=== PATIENT | male | born 1965 | race Caucasian/White ===

== ENCOUNTER 2022-07-19 10:50 | Outpatient (CLI) | payer OTHER, SELFPAY ==
[2022-07-19 11:19] LABS: Hematocrit 38.1 % (37.0-53.0); Hemoglobin* 12.4 gm/dL (13.5-17.5); Mean Corpuscular HGB Conc 33 gm/dL (32-36); Mean Corpuscular Hemoglobin 30 pg (26-34); Mean Corpuscular Volume 91 fL (80-100); Platelet Count* 255 K/uL (140-440); Red Blood Count 4.21 m/uL (4.30-5.90)
[2022-07-19 11:25] LABS: Hemoglobin A1C* 6.2 % (0-5.6)
[2022-07-19 11:39] LABS: Slide Review Reflex No
[2022-07-19 14:32] LABS: Chloride* 103 mmol/L (96-114); Potassium* 4.1 mmol/L (3.6-5.1); Sodium* 139 mmol/L (135-149)
[2022-07-19 14:34] LABS: Carbon Dioxide* 28 mmol/L (20-32); Cholesterol* 101 mg/dL (90-199); Creatinine* 0.9 mg/dL (0.5-1.5); Estimated Glomerular Filt Rate 100 ml/min
[2022-07-19 14:35] LABS: Alanine Aminotransferase* 31 U/L (4-50); Alkaline Phosphatase* 107 U/L (40-150); Aspartate Amino Transferase* 27 U/L (12-35); Bilirubin Total* 0.5 mg/dL (0.1-1.5); Blood Urea Nitrogen* 22 mg/dL (7-30); Calcium* 9.8 mg/dL (8.4-10.6); Glucose* 88 mg/dL (60-115); Total Protein* 6.2 g/dL (6.0-8.3); Triglycerides* 121 mg/dL (40-149)
[2022-07-19 14:36] LABS: HDL Cholesterol* 31 mg/dL (>=40); LDL Cholesterol Calculated 46 mg/dL (<100)
[2022-07-19 14:47] LABS: Creatinine Urine 169.6 mg/dL
[2022-07-19 14:52] LABS: Microalbumin Creatinine Ratio 20 mg/g (0-30); Microalbumin Urine 4 mg/dL
[2022-07-19 15:24] LABS: Vitamin B12* 460 pg/mL (243-894)
[2022-07-20 23:11] LABS: Testosterone, Adult Male 416 ng/dL (300-890)
== END 2022-07-19 10:51 | disposition home or self-care (01) ==
LOC: FRMREF 10:51
PROVIDERS: PCP Physician Assistant Medical; Visit Provider Physician Assistant Medical
DX: E11.3293 Type 2 diabetes mellitus with mild nonproliferative diabetic retinopathy without macular edema, bilateral (principal); E11.9 Type 2 diabetes mellitus without complications; E78.5 Hyperlipidemia, unspecified; I10 Essential (primary) hypertension; E11.69 Type 2 diabetes mellitus with other specified complication; N52.1 Erectile dysfunction due to diseases classified elsewhere
CPT/HCPCS: 80053; 80061; 82043; 82570; 82607; 83036; 84403; 85027

== ENCOUNTER 2022-09-20 08:32 | Outpatient (CLI) | payer OTHER, SELFPAY ==
--- NOTE | 2022-09-20 09:30 | W.ANESCHARGE ---
Anesthesia Charges Start Date/Time Anesthesia Start Date: 09/20/22 Anesthesia Start Time: 09:04 Stop Date/Time Anesthesia Stop Date: 09/20/22 Anesthesia Stop Time: 09:26 Summary Emergency: No
--- NOTE | 2022-09-20 10:20 | W.ANESCHARGE ---
Anesthesia Charges Start Date/Time Anesthesia Start Date: 09/20/22 Anesthesia Start Time: 09:04 Stop Date/Time Anesthesia Stop Date: 09/20/22 Anesthesia Stop Time: 09:26 Summary Emergency: No
== END 2022-09-20 08:33 | disposition home or self-care (01) ==
LOC: OP CLINIC 08:33
PROVIDERS: PCP Physician Assistant Medical; Visit Provider Internal Medicine
DX: Z12.11 Encounter for screening for malignant neoplasm of colon (principal); Z80.0 Family history of malignant neoplasm of digestive organs
CPT/HCPCS: 00812; 45378; J2704

== ENCOUNTER 2023-11-18 09:17 | Outpatient (CLI) | payer OTHER, SELFPAY | END 2023-11-18 09:18 | disposition home or self-care (01) | LOC: NFLDREF 11-19 14:14 | PROVIDERS: PCP Physician Assistant Medical; Referring Provider Physician Assistant Medical; Visit Provider Physician Assistant Medical | DX: E11.65 Type 2 diabetes mellitus with hyperglycemia (principal); E78.2 Mixed hyperlipidemia; I10 Essential (primary) hypertension; E11.69 Type 2 diabetes mellitus with other specified complication; N52.1 Erectile dysfunction due to diseases classified elsewhere; E11.40 Type 2 diabetes mellitus with diabetic neuropathy, unspecified; E11.49 Type 2 diabetes mellitus with other diabetic neurological complication; E11.3293 Type 2 diabetes mellitus with mild nonproliferative diabetic retinopathy without macular edema, bilateral | CPT/HCPCS: 80053; 80061; 82043; 82570; G0103 ==

== ENCOUNTER 2025-02-02 15:40 | Outpatient (CLI) | payer OTHER, SELFPAY | END 2025-02-02 15:41 | disposition home or self-care (01) | LOC: NFLDREF 02-06 13:10 | PROVIDERS: PCP Physician Assistant Medical; Referring Provider Physician Assistant Medical; Visit Provider Physician Assistant Medical | DX: E11.40 Type 2 diabetes mellitus with diabetic neuropathy, unspecified (principal); E11.49 Type 2 diabetes mellitus with other diabetic neurological complication; E11.65 Type 2 diabetes mellitus with hyperglycemia; I10 Essential (primary) hypertension; E78.2 Mixed hyperlipidemia; Z79.85 Long-term (current) use of injectable non-insulin antidiabetic drugs; Z12.5 Encounter for screening for malignant neoplasm of prostate | CPT/HCPCS: 80053; 80061; 82043; 82570; 84443; G0103 ==

== ENCOUNTER 2025-07-29 07:24 | Emergency (ER) | payer OTHER, SELFPAY ==
[2025-07-29] VITALS (10 sets, daily range): BP systolic 161–184; BP diastolic 91–99; PULSE 68–81; RESP 20; TEMP 36.7; O2SAT 94–98; BMI 31.5
--- OUTSIDE RECORDS SUMMARY | 2025-07-29 07:27 | XMS_ITS | Clinical Summary ---
Author Organization [facility] Address [address] [place] [id number] Care Team Providers Care Clutch Inspector Name Role Phone Param Melendez MD Primary Care Provider [phone] Allergies No known active allergies Medications oxyCODONE (ROXICODONE) 5 mg immediate release tabletIndications:U reteral stone Take 1-2 Tablets (5-10 mg) by mouth every 6 hours if needed for Pain. 12 Tablet 5 Active ondansetron (ZOFRAN ODT) 4 mg disintegrating tabletIndications:U reteral stone Place 1 Tablet (4 mg) on the tongue every 6 hours if needed for Nausea/Vomit ing. 10 Tablet 5 Active Encounters Date Type Department Care Team Description 07/28/2025 7:41 AM CDT - 07/28/2025 9:23 AM CDT Emergency [facility] [address] [place] [address] Param Johns MD Ureteral stone (Primary Dx); Lung nodule Discharge Disposition: Home Self Care 07/28/2025 Travel from Last 3 Months Social History Tobacco Use Types Packs/Day Years Used Date Smoking Tobacco: Never Assessed Interpersonal Safety Answer Date Record ed Are you being hit, kicked, p ushed or yelled at (see row info)? No 07/28/2025 Interpersonal Safety Abuse 12 - 18 Not on file 07/28/2025 Interpersonal Safety Ambulatory Vulnerability No t on file 07/28/2025 Sex and Gender Information Value Date Recorded Sex Assigned at Not on file Legal Sex Male 10:18 AM CDT Gender Identity Not on file Sexual Orientation Not on file Last Filed Vital Signs Vital Sign Reading Time Taken Comments Blood Pressure 149/89 07/28/2025 9:00 AM CDT Pulse 65 07/28/2025 9:00 AM CDT Temperature 36.3 C (97.4 F) 07/28/2025 7:47 AM CDT Respiratory Rate 16 07/28/2025 9:00 AM CDT Oxygen Saturation 93% 07/28/2025 9:00 AM CDT Inhaled Oxygen Concentration - - Weight 105.2 kg (232 lb) 07/28/2025 7:47 AM CDT Height 182.9 cm (6') 07/28/2025 7:47 AM CDT Body Mass Index 31.46 07/28/2025 7:47 AM CDT Plan of Treatment Health Maintenance Due Date Last Done Comments Tetanus booster 1976 Depression screening for age 12+ 1977 HIV for age 15-65 1980 BMI (ht and wt on same day) for age 18+ 1983 Hepatitis C screening for age 18-79 1983 Hepatitis B series for 19+ ( 1 of 3 - 19+ 3-dose series) 1984 Colonoscopy through age 75 2010 Lipids for age 45-75 2010 Pneumococcal series for age 50+ (1 of 1 - PCV) 016 Zoster (shingles) series for age 50+ (1 of 2) 10/24/19 16 COVID-19 vaccine series ( - season) 2021 Influenza Vaccine (#1) 2025 RSV vaccine for adults or pr egnancy (1 - 1-dose 75+ series) 2040 Procedures Procedure Name Priority Date/Time Associated Diagnosis Comments CT ABDOMEN PELVIS STONE PROTOCOL WO STAT 07/28/2025 8:41 AM CDT URINALYSIS MICROSCOPIC STAT 07/28/2025 7:48 AM CDT UA W/ SEDIMENT EXAM REFLEXED PER CRITERIA STAT 07/28/2025 7:48 AM CDT from Last 3 Months Results * CT ABDOMEN PELVIS STONE PROTOCOL WO (07/28/2025 8:41 AM CDT) Anatomical Region Laterality Modality Abdomen, Pelvis, AORTA, LIVER, SPLEEN Computed Tomography 07/28/2025 8:57 AM CDT Impressions 07/28/2025 8:57 AM CDT 1. Nephrolithiasis with mild left hydronephrosis and distal obstructing left ureteral stone measuring 3 x 3 millimeters. 2. Other incidental findings as noted above. Please note that all CT scans at this facility use dose modulation, iterative reconstruction, and/or weight-based dosing when appropriate to reduce radiation dose to as low as reasonably achievable. Dictated by Celso Fong MD @ 07/28/2025 8:57:54 AM (Electronically Signed) Narrative 07/28/2025 8:57 AM CDT For Patients: As a result of the Cures Act, medical imaging exams and procedure reports are released immediately into your electronic medical record. You may view this report before your referring provider. If you have questions, please contact your health care provider. INDICATION: Flank pain TECHNIQUE: Axial images were obtained from the diaphragm to the pubic symphysis. Reformats were obtained in the coronal and sagittal plane. IV Contrast: None Oral Contrast: None COMPARISON: None. FINDINGS: Lower chest: 1 millimeter pulmonary nodules within the right upper lobe, partially included on the examination (3, 1). In a high-risk patient, follow-up CT scan could be considered in 12 months to assess stability. Discoid atelectasis left lower lobe. Moderate coronary atherosclerosis. Liver: Unremarkable. Normal in size and attenuation. No masses. Gallbladder and bile ducts: Cholelithiasis without pericholecystic inflammation. Spleen: Unremarkable. Normal in size without mass. Pancreas: Unremarkable. No mass or inflammation. Adrenal glands: Unremarkable. No nodules. Kidneys: Nephrolithiasis with mild left hydronephrosis and perinephric fat stranding. Distal obstructing stone measuring 3 x 3 millimeters. Vasculature: Atherosclerosis without abdominal aortic aneurysm. GI tract: The stomach is unremarkable. No dilated loops of large or small intestine. Appendix unremarkable. Small fat containing umbilical hernia. Pelvis: Unremarkable. Bones: Degenerative disc disease lumbar spine. Procedure Note Celso Fong MD - 07/28/2025 For Patients: As a result of the 21st Century Cures Act, medical imagingexams and procedure reports are released immediately into your electronicmedical record. You may view this report before your referring provider.If you have questions, please contact your health care provider. INDICATION: Flank pain TECHNIQUE: Axial images were obtained from the diaphragm to the pubic symphysis. Reformats were obtained in the coronal and sagittal plane. IV Contrast: None Oral Contrast: None COMPARISON: None. FINDINGS: Lower chest: 1 millimeter pulmonary nodules within the right upper lobe,partially included on the examination (3, 1). In a high-risk patient,follow-up CT scan could be considered in 12 months to assess stability.Discoid atelectasis left lower lobe. Moderate coronary atherosclerosis. Liver: Unremarkable. Normal in size and attenuation. No masses. Gallbladder and bile ducts: Cholelithiasis without pericholecysticinflammation. Spleen: Unremarkable. Normal in size without mass. Pancreas: Unremarkable. No mass or inflammation. Adrenal glands: Unremarkable. No nodules. Kidneys: Nephrolithiasis with mild left hydronephrosis and perinephric fatstranding. Distal obstructing stone measuring 3 x 3 millimeters. Vasculature: Atherosclerosis without abdominal aortic aneurysm. GI tract: The stomach is unremarkable. No dilated loops of large or smallintestine. Appendix unremarkable. Small fat containing umbilical hernia. Pelvis: Unremarkable. Bones: Degenerative disc disease lumbar spine. IMPRESSION: 1. Nephrolithiasis with mild left hydronephrosis and distal obstructingleft ureteral stone measuring 3 x 3 millimeters. 2. Other incidental findings as noted above. Please note that all CT scans at this facility use dose modulation,iterative reconstruction, and/or weight-based dosing when appropriate toreduce radiation dose to as low as reasonably achievable. Dictated by Celso Fong MD @ 07/28/2025 8:57:54 AM (Electronically Signed) us Param Johns MD CT Christina l Result * (ABNORMAL) URINALYSIS MICROSCOPIC (07/28/2025 7:48 AM CDT) RBC 51-100(A) 0-2, None Seen /HPF 07/28/2025 8:22 AM [facility] WBC 0-2 0-2, 3-5, None Seen /HPF 07/28/2025 8:22 AM [facility] BACTERIA Moderate(A) None Seen, Rare, Few Bacteria/ HPF 07/28/2025 8:22 AM [facility] EPITHELIAL CELLS Few None Seen, Few Epi/HPF 07/28/2025 8:22 AM [facility] Mucus Present 07/28/2025 8:22 AM [facility] AMORPHOUS Present(A) (none) 07/28/2025 8:22 AM [facility] Urine URINE SPECIMEN / Unknown Non-Blood / Unknown 07/28/2025 7:48 AM CDT 07/28/2025 8:04 AM CDT [facility] Triage URINE Final Result Performing Organization Address City/[facility] Co de Phone Number [facility] [address] [place] [address] * (ABNORMAL) UA W/ SEDIMENT EXAM REFLEXED PER CRITERIA (07/28/2025 7:48 AM CDT) COLOR Yellow Yellow Color 07/28/2025 8:18 AM [facility] CLARITY Clear Clear Clarity 07/28/2025 8:18 AM [facility] SPECIFIC GRAVITY,URINE >=1.030(A) 1.010, 1.015, 1.020, 1.025 07/28/2025 8:18 AM [facility] PH,URINE 5.5 6.0, 7.0, 8.0, 5.5, 6.5, 7.5, 8.5 07/28/2025 8:18 AM [facility] UROBILINOGEN, QUALITATIVE Normal Normal EU/dl 07/28/2025 8:18 AM [facility] PROTEIN, URINE Negative Negative mg/dL 07/28/2025 8:18 AM [facility] GLUCOSE, URINE Negative Negative mg/dL 07/28/2025 8:18 AM CDT [facility] KETONES,URINE Negative Negative mg/dL 07/28/2025 8:18 AM CDT [facility] BILIRUBIN,URI NE Negative Negative 07/28/2025 8:18 AM CDT [facility] OCCULT BLOOD,URINE Large(A) Negative 07/28/2025 8:18 AM CDT [facility] NITRITE Negative Negative 07/28/2025 8:18 AM CDT [facility] LEUKOCYTE ESTERASE Negative Negative 07/28/2025 8:18 AM CDT [facility] Urine URINE SPECIMEN / Unknown Non-Blood / Unknown 07/28/2025 7:48 AM CDT 07/28/2025 8:04 AM CDT [facility] Triage URINE Final Result Performing Organization Address City/[facility] Co de Phone Number [facility] [address] [place] [address] from Last 3 Months Insurance [facility] [employer] Care Teams Clutch Inspector Relationship Specialty Start Date End Date Param Melendez MD [address] [place] [id number] PCP - General Family Practice 07/08/17
--- NOTE | 2025-07-29 08:10 | ED.GENADULT ---
HPI - General Adult General Chief complaint: Abdominal Pain Stated complaint: abdominal pain Time Seen by Provider: 07/29/25 08:10 History of Present Illness HPI narrative: Arrives with left side abdomen pain, seen yesterday and has a known left kidney stone, pain became severe at 0300 this morning. Alert and oriented, endorses some nausea but denies urinary or other symptoms, VSS, ABCs intact. 59-year-old man presenting to the emergency department with concern of left-sided abdominal pain. Was seen in area emergency department yesterday with CT imaging and reports a 3 mm ureteral stone. This is 2nd day of symptoms. Was discharged from said emergency department with oxycodone and Zofran (later obtaining record shows also recommended for ibuprofen) Overnight pain got worse again. Medications are not helping. Did think he may have heard it clink in the toilet bowl were he thought maybe he had passed a stone but pain is continued as a deep aching and sharp left mid abdominal pain. Admittedly this pain is similar to what he experienced earlier with the kidney stone. No fever. Denies constipation. Related Data Home Medications ?Medication ?Instructions ?Recorded ?Confirmed aspirin 81 mg tablet,delayed 81 mg PO QDAY 06/28/22 07/29/25 release (Adult Aspirin Regimen) blood sugar diagnostic (Accu-Chek 06/28/22 04/12/25 Andria Plus test strips) blood-glucose meter (Accu-Chek 06/28/22 04/12/25 Andria Plus Meter) lancets (Accu-Chek Softclix 06/28/22 04/12/25 Lancets) multivitamin (Daily Multi-Vitamin 1 tab PO QAM 07/19/22 07/29/25 tablet) ondansetron 4 mg disintegrating PO 07/29/25 tablet oxycodone 5 mg tablet 5 mg PO QID PRN 07/29/25 07/29/25 Previous Rx's ?Medication ?Instructions ?Recorded tadalafil 20 mg tablet (Cialis) 20 mg PO QDAY PRN sexual activity 11/18/23 #30 tabs atorvastatin 20 mg tablet 20 mg PO QDAY #90 tabs 02/02/25 gabapentin 300 mg capsule 300 mg PO .hs #90 caps 02/02/25 tirzepatide 15 mg/0.5 mL 15 mg (0.5 mL) subcut QWEEK #6 mL 06/03/25 subcutaneous pen injector losartan 100 mg tablet 100 mg PO DAILY #90 tabs 07/11/25 ketorolac 10 mg tablet 10 mg PO Q6H PRN pain #20 tabs 07/29/25 tamsulosin 0.4 mg capsule 0.4 mg PO DAILY PRN #15 caps 07/29/25 Allergies Allergy/AdvReac Type Severity Reaction Status Date / Time No Known Drug Allergies [facility] 07/29[facility]25 07:42 [facility] Medical History (Updated 07/29/25 @ 09:33 by Jamshid Colby MD) Foot fracture, left ?S92.902A - Unspecified fracture of left foot, initial encounter for closed fracture (ICD-10) Kidney stone ?N20.0 - Calculus of kidney (ICD-10) Surgical History (Updated 04/12/25 @ 15:16 by Barbara Beckett ~ [facility]) History of carpal tunnel surgery of right wrist ?Z98.890 - Other specified postprocedural states (ICD-10) History of colonoscopy ?Z98.890 - Other specified postprocedural states (ICD-10) Hx of adenoidectomy ?Z90.89 - Acquired absence of other organs (ICD-10) History of placement of ear tubes ?Z96.22 - Myringotomy tube(s) status (ICD-10) Family History (Updated 06/28/22 @ 12:07 by Gladys Khan~[facility]) Father Coronary artery disease Gout Mother Diabetes Sister Colonic polyp Social History (Updated 04/12/25 @ 15:14 by Barbara Beckett ~ [facility], [facility]) Narrative: Cigar smoker Sister works as a family physician Cameron macias Sister in accident 2019 Smoking Status: Never smoker Do you use any of these nicotine containing products: None Second hand tobacco smoke exposure: Yes Exam Narrative: Exam Narrative: Pleasant. Restless and in apparent pain. Rubbing his left mid low abdomen. Mildly labored in breathing. Easily conversant though. Abdomen is soft and with a little tenderness palpation left mid abdomen. Heart is in regular rate and rhythm. Skin is warm and dry without apparent rash. Well-perfused peripherally without edema. Const: Vital Signs, click to edit/add: Vital Signs - 24 hr 07/29/25 07:47 07/29/25 08:05 07/29/25 08:06 Temperature 98.1 F Pulse Rate 78 79 Pulse Rate [Pulse Oximeter] 74 Respiratory Rate 20 Blood Pressure 165/91 H Blood Pressure [Le ft Upper Arm] 184/99 H Pulse Oximetry 98 96 94 Oxygen Delivery Me thod Room Air 07/29/25 08:15 07/29/25 08:17 07/29/25 08:18 Temperature Pulse Rate 81 78 72 Pulse Rate [Pulse Oximeter] Respiratory Rate Blood Pressure 161/95 H Blood Pressure [Le ft Upper Arm] Pulse Oximetry 95 96 96 Oxygen Delivery Me thod 07/29/25 08:30 07/29/25 08:32 07/29/25 08:43 Temperature Pulse Rate 78 75 70 Pulse Rate [Pulse Oximeter] Respiratory Rate Blood Pressure 168/92 H Blood Pressure [Le ft Upper Arm] Pulse Oximetry 95 94 96 Oxygen Delivery Me thod 07/29/25 08:45 Temperature Pulse Rate 68 Pulse Rate [Pulse Oximeter] Respiratory Rate Blood Pressure Blood Pressure [Le ft Upper Arm] Pulse Oximetry 98 Oxygen Delivery Me thod Documenting provider has reviewed patient's vital signs: yes Course Vital Signs Vital signs: Initial Vital Signs Temperature 98.1 F 07/29/25 07:47 Temperature Source Temporal Artery Scan 07/29/25 07:47 Pulse Rate 74 07/29/25 07:47 Respiratory Rate 20 07/29/25 07:47 Blood Pressure 184/99 H 07/29/25 07:47 Blood Pressure Mean 127 H 07/29/25 07:47 Pulse Oximetry 98 07/29/25 07:47 Oxygen Delivery Method Room Air 07/29/25 07:47 Vital Signs Temperature 98.1 F 07/29/25 07:47 Pulse Rate 74 07/29/25 07:47 Respiratory Rate 20 07/29/25 07:47 Blood Pressure 184/99 H 07/29/25 07:47 Pulse Oximetry 98 07/29/25 07:47 Oxygen Delivery Method Room Air 07/29/25 07:47 Temperature 98.1 F 07/29/25 07:47 Pulse Rate 68 07/29/25 08:45 Respiratory Rate 20 07/29/25 07:47 Blood Pressure 168/92 H 07/29/25 08:32 Pulse Oximetry 98 07/29/25 08:45 Oxygen Delivery Method Room Air 07/29/25 07:47 Medications Administered Medications: Discontinued Medications Generic Name Dose Route Start Last Admin Trade Name Mingo PRN Reason Stop Dose Admin Hydromorphone HCl 0.5 mg 07/29/25 07:45 07/29/25 08:01 Hydromorphone 0.5 Mg/0.5 Ml Inj IVP 07/29/25 07:46 0.5 mg ONCE ONE Administration Sodium Chloride 1,000 mls @ 1,000 mls/hr 07/29/25 07:45 07/29/25 09:10 0.9 % Sodium Chloride 1000 Ml IV 07/29/25 08:44 Infused .Q1H ANA MARIA Infusion Ketorolac Tromethamine 30 mg 07/29/25 08:12 07/29/25 08:15 Ketorolac 30 Mg/Ml Inj IVP 07/29/25 08:13 30 mg ONCE ONE Administration Morphine Sulfate 4 mg 07/29/25 08:23 07/29/25 09:00 Morphine 4 Mg/Ml Inj IVP 07/29/25 08:24 Not Given ONCE ONE Tamsulosin HCl 0.4 mg 07/29/25 08:56 07/29/25 09:04 Tamsulosin Hcl 0.4 Mg Capsule PO 07/29/25 08:57 0.4 mg ONCE ONE Administration Medical Decision Making MDM Narrative Medical decision making narrative: By the time I am seeing Mr. Hanna how going provider at change of shift his ordered for IV fluids and Dilaudid. He is still experiencing pain. I suspect that this pain is likely representing a distal maybe UVJ ureteral stone with colic. I order some ketorolac. Prior to this ketorolac taking effect and did re-dose opiate with 4 mg of morphine. This took some edge off and then ultimately I think ketorolac must have really helped. Is much more comfortable and relaxed. We are able to locate report of CT abdomen pelvis stone protocol that was done yesterday. This does confirm a ?distal obstructing stone measuring 3 x 3 mm also noted was cholelithiasis. He demonstrated also ?mild left hydronephrosis and perinephric fat stranding? Reviewing labs from yesterday with blood in urine without evidence of infection. He notes good renal function though I see a creatinine from January 2025 at 1.4. Does have diabetes. Overall comfortable, improved. Doubtful infection at this point. Rechecked urine however and only showing 1+ ketones and 1+ blood. Considered KUB though doubtful it would show much in this case and with only 3 mm stone. This could be ureteral colic residual without stone but would treat similarly. Given dose of Flomax here in the emergency department. See patient discharge plan for further discussion Stay well-hydrated. Consider straining your urine over this next week. Can take up to 800 mg of ibuprofen per dose. I am though also sending in a prescription of ketorolac which you received in IV form here and yesterday. Do not take them at the same time dosing. Can combine either with your other medications. Sending in also Flomax also known as tamsulosin. This can be helpful with spasming. Would take this daily until you are sure of stone passage. Be seen for uncontrolled pain, repeated vomiting, fever, pain still present at 5 days. Medical Records Medical records reviewed: Yes I reviewed the patient's medical records Lab Data Lab results reviewed: Yes I reviewed the patient's lab results Labs: Lab Results 07/29/25 Range/Units 08:35 Urine Color Yellow (Yellow) Urine Appearance Clear (Clear) Urine pH 5.5 (5.0-8.5) Ur Specific [place] 1.025 (1.000-1.030) Urine Protein Trace A (Negative) Urine Glucose (UA) Negative (Negative) Urine Ketones 1+ A (Negative) Urine Blood 1+ A (Negative) Urine Nitrite Negative (Negative) Urine Bilirubin Negative (Negative) Urine Urobilinogen 0.2 (0.2-1.0) Ur Leukocyte Esterase Negative (Negative) Urine RBC 0-2 (0-2) Urine WBC 0-2 (0-5) Ur Squamous Epith Cells None (None-Few) Urine Bacteria None (None) Discharge Plan Discharge Clinical Impression: Ureteral colic, Ureteral calculus, left Patient Disposition: Home w/ Parent or Adult Condition: Improved Additional Instructions: Stay well-hydrated. Consider straining your urine over this next week. Can take up to 800 mg of ibuprofen per dose. I am though also sending in a prescription of ketorolac which you received in IV form here and yesterday. Do not take them at the same time dosing. Can combine either with your other medications. Sending in also Flomax also known as tamsulosin. This can be helpful with spasming. Would take this daily until you are sure of stone passage. Be seen for uncontrolled pain, repeated vomiting, fever, pain still present at 5 days. Prescriptions: New tamsulosin 0.4 mg capsule 0.4 mg PO DAILY PRNQty: 15 0RF ketorolac 10 mg tablet 10 mg PO Q6H PRN (Reason: pain) Qty: 20 0RF No Action multivitamin [Daily Multi-Vitamin] Tablet 1 tab PO QAM tadalafil [Cialis] 20 mg tablet 20 mg PO QDAY PRN (Reason: sexual activity) Qty: 30 0RF Rx Instructions: administer approximately 30min before sexual activity; do not use more than 1 dose per 24hrs atorvastatin 20 mg tablet 20 mg PO QDAY Qty: 90 3RF gabapentin 300 mg capsule 300 mg PO .hs Qty: 90 3RF ondansetron 4 mg tablet,disintegrating PO oxycodone 5 mg tablet 5 mg PO QID PRN (DME) Accu-Chek Andria Plus test strp Strip See Rx Instructions .Route Rx Instructions: BID PRN (DME) lancets [Accu-Chek Softclix Lancets] Misc See Rx Instructions .Route Rx Instructions: BID PRN (DME) blood-glucose meter [Accu-Chek Andria Plus Meter] Misc See Rx Instructions .Route Rx Instructions: As directed aspirin [Adult Aspirin Regimen] 81 mg tablet,delayed release (DR/EC) 81 mg PO QDAY tirzepatide 15 mg/0.5 mL pen injector 15 mg subcut QWEEK Qty: 6 1RF losartan 100 mg tablet 100 mg PO DAILY Qty: 90 1RF Follow Up/Referrals: Slaon Montes De Oca PA-C [Primary Care Provider, Family Practice] Stand Alone Forms: MyHealth Info Instructions
[2025-07-29 08:41] LABS: Appearance Urine Clear (Clear)
[2025-07-29] MEDS: TAMSULOSIN HCL 0.4 MG CAPSULE PO (09:04)
== END 2025-07-29 09:46 | disposition home or self-care (01) ==
PROVIDERS: Emergency Provider Family Medicine; PCP Physician Assistant Medical
DX: N13.2 Hydronephrosis with renal and ureteral calculous obstruction (principal)
CPT/HCPCS: 81001; 96374; 96375; 99284; A9270; J1171; J1885; J7030

== ENCOUNTER 2025-07-31 18:19 | Emergency (ER) | payer OTHER, SELFPAY ==
--- OUTSIDE RECORDS SUMMARY | 2025-07-31 18:21 | XMS_ITS | Clinical Summary ---
Author Organization [facility] Address [address] [place] [id number] Care Team Providers Care Netting Weaver Name Role Phone Param Melendez MD Primary Care Provider [phone] Allergies No known active allergies Medications oxyCODONE [...] CDT - 07/28/2025 9:23 AM CDT Emergency [facility] [address] [place] [address] Param Johns MD Ureteral stone (Primary Dx); [...] 0-2, None Seen /HPF 07/28/2025 8:22 AM [facility] WBC 0-2 0-2, 3-5, None Seen /HPF 07/28/2025 8:22 AM [facility] BACTERIA Moderate(A) None Seen, Rare, Few Bacteria/ HPF 07/28/2025 8:22 AM [facility] EPITHELIAL CELLS Few None Seen, Few Epi/HPF 07/28/2025 8:22 AM [facility] Mucus Present 07/28/2025 8:22 AM [facility] AMORPHOUS Present(A) (none) 07/28/2025 8:22 AM [facility] Urine URINE SPECIMEN / Unknown Non-Blood / Unknown 07/28/2025 7:48 AM CDT 07/28/2025 8:04 AM CDT [facility] Triage URINE Final Result Performing Organization Address City/[facility] Co de Phone Number [facility] [address] [place] [address] * (ABNORMAL) UA W/ SEDIMENT EXAM REFLEXED PER CRITERIA (07/28/2025 7:48 AM CDT) COLOR Yellow Yellow Color 07/28/2025 8:18 AM [facility] CLARITY Clear Clear Clarity 07/28/2025 8:18 AM [facility] SPECIFIC GRAVITY,URINE >=1.030(A) 1.010, 1.015, 1.020, 1.025 07/28/2025 8:18 AM [facility] PH,URINE 5.5 6.0, 7.0, 8.0, 5.5, 6.5, 7.5, 8.5 07/28/2025 8:18 AM [facility] UROBILINOGEN, QUALITATIVE Normal Normal EU/dl 07/28/2025 8:18 AM [facility] PROTEIN, URINE Negative Negative mg/dL 07/28/2025 8:18 AM [facility] GLUCOSE, URINE Negative Negative mg/dL 07/28/2025 8:18 AM CDT [facility] KETONES,URINE Negative Negative mg/dL 07/28/2025 8:18 AM CDT [facility] BILIRUBIN,URI NE Negative Negative 07/28/2025 8:18 AM CDT [facility] OCCULT BLOOD,URINE Large(A) Negative 07/28/2025 8:18 AM CDT [facility] NITRITE Negative Negative 07/28/2025 8:18 AM CDT [facility] LEUKOCYTE ESTERASE Negative Negative 07/28/2025 8:18 AM CDT [facility] Urine URINE SPECIMEN / Unknown Non-Blood / Unknown 07/28/2025 7:48 AM CDT 07/28/2025 8:04 AM CDT [facility] Ed Triage URINE Final Result Performing Organization Address City/[facility] Co de Phone Number [facility] [address] [place] [address] from Last [address] [facility] [employer] Care Teams Netting Weaver Relationship Specialty Start Date End Date Param Melendez MD [address] [place] [id number] PCP - General Family Practice 07/08/17
[2025-07-31 18:40] VITALS: BP 193/98; PULSE 80; RESP 20; TEMP 36.8; O2SAT 97
--- NOTE | 2025-07-31 18:49 | ED.GENADULT ---
HPI - General Adult General Chief complaint: Abdominal Pain Stated complaint: Day 4 Kidney Stone Time Seen by Provider: 07/31/25 18:26 History of Present Illness HPI narrative: Arrives with left side abdomen pain, diagnosed with kidney stone on Friday, pain was gone yesterday but returned tonight after he urinated. Alert and oriented, denies hematuria or other symptoms, ABCs intact. 59-year-old man presenting to emergency department with complaint of left side sharp abdominal pain, unrelenting over the last hour. Was diagnosed with a 3 mm distal ureteral stone on the left side 3 days ago. Was seen next day by myself at this facility 2 days ago. Treated symptomatically and with urine without evidence of infection discharged with the addition of Flomax and ketorolac. Has not gotten a full night of sleep since. But does settle down. Tends to flare in the mornings. This morning he did take ketorolac and then an hour before arrival here with onset of more intense pain following bathrooming, took a small quantity ibuprofen and acetaminophen. Has not taken oxycodone since he thought that it seemed ineffective after initially being seen in this course. Has forgotten to take his Flomax today. No fever but he feels warm. Is not experiencing nausea or vomiting. He has not noticed further hematuria. Related Data Home Medications ?Medication ?Instructions ?Recorded ?Confirmed aspirin 81 mg tablet,delayed 81 mg PO QDAY 06/28/22 07/31/25 release (Adult Aspirin Regimen) blood sugar diagnostic (Accu-Chek 06/28/22 04/12/25 Andria Plus test strips) blood-glucose meter (Accu-Chek 06/28/22 04/12/25 Andria Plus Meter) lancets (Accu-Chek Softclix 06/28/22 04/12/25 Lancets) multivitamin (Daily Multi-Vitamin 1 tab PO QAM 07/19/22 07/31/25 tablet) ondansetron 4 mg disintegrating PO 07/29/25 tablet oxycodone 5 mg tablet 5 mg PO QID PRN 07/29/25 07/31/25 Previous Rx's ?Medication ?Instructions ?Recorded tadalafil 20 mg tablet (Cialis) 20 mg PO QDAY PRN sexual activity 11/18/23 #30 tabs atorvastatin 20 mg tablet 20 mg PO QDAY #90 tabs 02/02/25 gabapentin 300 mg capsule 300 mg PO .hs #90 caps 02/02/25 tirzepatide 15 mg/0.5 mL 15 mg (0.5 mL) subcut QWEEK #6 mL 06/03/25 subcutaneous pen injector losartan 100 mg tablet 100 mg PO DAILY #90 tabs 07/11/25 ketorolac 10 mg tablet 10 mg PO Q6H PRN pain #20 tabs 07/29/25 tamsulosin 0.4 mg capsule 0.4 mg PO DAILY PRN #15 caps 07/29/25 Allergies Allergy/AdvReac Type Severity Reaction Status Date / Time No Known Drug Allergies Allergy Verified 07/31/25 18:32 Review of Systems Status of ROS: Reports: 6 or more systems reviewed and unremarkable except as noted in History and below [facility] Medical History Foot fracture, left ?S92.902A - Unspecified fracture of left foot, initial encounter for closed fracture (ICD-10) Kidney stone ?N20.0 - Calculus of kidney (ICD-10) Surgical History History of carpal tunnel surgery of right wrist ?Z98.890 - Other specified postprocedural states (ICD-10) History of colonoscopy ?Z98.890 - Other specified postprocedural states (ICD-10) Hx of adenoidectomy ?Z90.89 - Acquired absence of other organs (ICD-10) History of placement of ear tubes ?Z96.22 - Myringotomy tube(s) status (ICD-10) Family History Father Coronary artery disease Gout Mother Diabetes Sister Colonic polyp Social History Narrative: Cigar smoker Sister works as a family physician Cameron macias Sister in accident 2019 Smoking Status: Never smoker Do you use any of these nicotine containing products: None Second hand tobacco smoke exposure: Yes How often do you have a drink containing alcohol: never AUDIT-C Alcohol total score: 0 Non-prescribed substance use: denies use Exam Narrative: Exam Narrative: Moaning in apparent discomfort. Otherwise breathing easily. Lungs are clear. Heart is in regular rate and rhythm. He is restless and rubbing his left mid abdomen. It is sore to palpation in this area without peritoneal signs. Soft. No flank pain. Extremities are well perfused without edema. Const: Vital Signs, click to edit/add: Vital Signs - 24 hr 07/31/25 18:40 07/31/25 20:25 Temperature 98.2 F 98.6 F Pulse Rate [Pulse Oximeter] 80 78 Respiratory Rate 20 18 Blood Pressure [Ri t Upper Arm] 193/98 H 152/85 H Pulse Oximetry 97 94 Oxygen Delivery Me thod Room Air Room Air Documenting provider has reviewed patient's vital signs: yes Course Vital Signs Vital signs: Initial Vital Signs Temperature 98.2 F 07/31/25 18:40 Temperature Source Temporal Artery Scan 07/31/25 18:40 Pulse Rate 80 07/31/25 18:40 Respiratory Rate 20 07/31/25 18:40 Blood Pressure 193/98 H 07/31/25 18:40 Blood Pressure Mean 129 H 07/31/25 18:40 Pulse Oximetry 97 07/31/25 18:40 Oxygen Delivery Method Room Air 07/31/25 18:40 Vital Signs Temperature 98.2 F 07/31/25 18:40 Pulse Rate 80 07/31/25 18:40 Respiratory Rate 20 07/31/25 18:40 Blood Pressure 193/98 H 07/31/25 18:40 Pulse Oximetry 97 07/31/25 18:40 Oxygen Delivery Method Room Air 07/31/25 18:40 Temperature 98.6 F 07/31/25 20:25 Pulse Rate 78 07/31/25 20:25 Respiratory Rate 18 07/31/25 20:25 Blood Pressure 152/85 H 07/31/25 20:25 Pulse Oximetry 94 07/31/25 20:25 Oxygen Delivery Method Room Air 07/31/25 20:25 Medications Administered Medications: Discontinued Medications Generic Name Dose Route Start Last Admin Trade Name Freq PRN Reason Stop Dose Admin Ketorolac Tromethamine 10 mg 07/31/25 18:46 07/31/25 18:55 Ketorolac 10 Mg Tablet PO 07/31/25 18:47 10 mg ONCE ONE Administration Oxycodone HCl 10 mg 07/31/25 18:46 07/31/25 18:55 Oxycodone 5 Mg Tablet PO 07/31/25 18:47 10 mg ONCE ONE Administration Tamsulosin HCl 0.4 mg 07/31/25 18:46 07/31/25 18:56 Tamsulosin Hcl 0.4 Mg Capsule PO 07/31/25 18:47 0.4 mg ONCE ONE Administration Medical Decision Making MDM Narrative Medical decision making narrative: I don't think has maximized outpatient management. Possibly not but should be a passable left ureteral stone now day 3. No fever. Would like to collect another urine. Presumably ureteral colic is the source of his pain. This is consistent with prior presentation. I would like to know whether not with full outpatient regimen we can actually control his pain. I did offer though immediate relief with IV medications. He is willing to try oral medications at this time. Following dosing oxycodone, ketorolac, Flomax has noted some improvement. Ultimately much more relaxed and comfortable. Urinalysis does not look to be infected though more white cells than last checked. Only trace leukocyte esterase and no nitrite. I would suspect these are inflammatory. Will culture. He feels can go home at this point. See patient discharge plan for further discussion. Relieved you're feeling better. I would consider taking over the next 2-3 days if needed, that ketorolac regularly dosed at least twice or maybe 3 times a day. Continue to take daily Flomax until believe stone has passed and strain your urine yet over the next few days. If/when pain flares, can take the oxycodone you have and/or add acetaminophen as well. If still having some pain at 5 days from initial onset would be re-evaluated. At that point I would consider redoing your labs and re imaging. Otherwise return for fever, uncontrolled pain, repeated vomiting. Medical Records Medical records reviewed: Yes I reviewed the patient's medical records Lab Data Lab results reviewed: Yes I reviewed the patient's lab results Labs: Lab Results 07/31/25 Range/Units 19:05 Urine Color Yellow (Yellow) Urine Appearance Clear (Clear) Urine pH 5.0 (5.0-8.5) Ur Specific [place] >= 1.030 (1.000-1.030) Urine Protein 2+ A (Negative) Urine Glucose (UA) Negative (Negative) Urine Ketones Trace A (Negative) Urine Blood 3+ A (Negative) Urine Nitrite Negative (Negative) Urine Bilirubin Negative (Negative) Urine Urobilinogen 0.2 (0.2-1.0) Ur Leukocyte Esterase Trace A (Negative) Urine RBC 25-50 A (0-2) Urine WBC 10-25 A (0-5) Ur Squamous Epith Cells Many A (None-Few) Amorphous Sediment Moderate A (None) Urine Bacteria None (None) Discharge Plan Discharge Clinical Impression: Left ureteral stone, Ureteral colic Patient Disposition: Home w/ Parent or Adult Condition: Improved Instructions: Ureteral Stones (ED) Additional Instructions: Relieved you're feeling better. I would consider taking over the next 2-3 days if needed, that ketorolac regularly dosed at least twice or maybe 3 times a day. Continue to take daily Flomax until believe stone has passed and strain your urine yet over the next few days. If/when pain flares, can take the oxycodone you have and/or add acetaminophen as well. If still having some pain at 5 days from initial onset would be re-evaluated. At that point I would consider redoing your labs and re imaging. Otherwise return for fever, uncontrolled pain, repeated vomiting. Activity Level: No Restrictions Discharge Diet: Regular Prescriptions: No Action multivitamin [Daily Multi-Vitamin] Tablet 1 tab PO QAM tadalafil [Cialis] 20 mg tablet 20 mg PO QDAY PRN (Reason: sexual activity) Qty: 30 0RF Rx Instructions: administer approximately 30min before sexual activity; do not use more than 1 dose per 24hrs atorvastatin 20 mg tablet 20 mg PO QDAY Qty: 90 3RF gabapentin 300 mg capsule 300 mg PO .hs Qty: 90 3RF ondansetron 4 mg tablet,disintegrating PO oxycodone 5 mg tablet 5 mg PO QID PRN tamsulosin 0.4 mg capsule 0.4 mg PO DAILY PRNQty: 15 0RF ketorolac 10 mg tablet 10 mg PO Q6H PRN (Reason: pain) Qty: 20 0RF (DME) Accu-Chek Andria Plus test strp Strip See Rx Instructions .Route Rx Instructions: BID PRN (DME) lancets [Accu-Chek Softclix Lancets] Misc See Rx Instructions .Route Rx Instructions: BID PRN (DME) blood-glucose meter [Accu-Chek Andria Plus Meter] Misc See Rx Instructions .Route Rx Instructions: As directed aspirin [Adult Aspirin Regimen] 81 mg tablet,delayed release (DR/EC) 81 mg PO QDAY tirzepatide 15 mg/0.5 mL pen injector 15 mg subcut QWEEK Qty: 6 1RF losartan 100 mg tablet 100 mg PO DAILY Qty: 90 1RF Follow Up/Referrals: Sloan Montes De Oca PA-C [Primary Care Provider, Family Practice] Stand Alone Forms: [facility] Info Instructions
[2025-07-31] MEDS: KETOROLAC 10 MG TABLET PO (18:55)
[2025-07-31] MEDS: TAMSULOSIN HCL 0.4 MG CAPSULE PO (18:56)
[2025-07-31 19:10] LABS: Appearance Urine Clear (Clear)
[2025-07-31 20:25] VITALS: BP 152/85; PULSE 78; RESP 18; TEMP 37; O2SAT 94
== END 2025-07-31 21:10 | disposition home or self-care (01) ==
PROVIDERS: Emergency Provider Family Medicine; PCP Physician Assistant Medical
DX: N20.0 Calculus of kidney (principal)
CPT/HCPCS: 81001; 87086; 99283; 99284; A9270